=== PATIENT | male | born 1990 | race Caucasian/White ===

== ENCOUNTER 2017-09-15 16:57 | Emergency (ER) | payer OTHER ==
[~2017-09-15] VITALS: Ht 177.8 cm; Wt 86.2 kg
--- NOTE | 2017-09-15 17:13 | PHYS DOC ---
Adult General Chief Complaint Chief Complaint: LACERATION/AVULSION HPI HPI Patient is a 27-year-old male who presents with laceration of the distal thigh on the right side, tetanus up-to-date, patient denies any other injury. Injury occurred when patient hit his leg against a sheet metal former. Review of Systems Review of Systems Constitutional: Denies fever or chills [] Eyes: Denies injury HENT: Denies injury Cardiovascular: No chest injury GI: Denies abdominal pain, injury Musculoskeletal: Denies back pain or joint pain other than at the site of the laceration per history of present illness Integument: Denies rash or skin lesions. As per history of present illness Neurologic: Denies focal weakness or sensory changes [] All other systems were reviewed and found to be within normal limits, except as documented in this note. Physical Exam Physical Exam Constitutional: Well developed, well nourished, no acute distress, non-toxic appearance. [] HENT: Normocephalic, atraumatic, Eyes: EOMI, conjunctiva normal, no discharge. [] Neck: Normal range of motion, trachea midline no stridor. [] Cardiovascular: Normal perfusion] Lungs & Thorax: No tachypnea Abdomen: Nondistended[] Skin: Warm, dry, no erythema, no rash. Exception is laceration at distal thigh, linear, no contaminated, approximately 3.5 cm in length, no active bleeding, it does not go into the muscle Back: Normal range of motion Extremities: No tenderness, ROM intact, no edema. [] Neurologic: Alert and oriented X 3, normal motor function, no focal deficits noted. [] Psychologic: Affect normal, judgement normal, mood normal. [] EKG EKG [] Radiology/Procedures Radiology/Procedures [] Course & Med Decision Making Course & Med Decision Making Indication: Laceration distal right thigh Procedure: The patient was placed in the appropriate position and anesthesia around the 2% lidocaine, 4 mL injected into the subcutaneous tissue. The area was then cleaned with copious irrigation, no foreign bodies identified. The laceration was 3-0 nylon, 4 interrupted sutures The wound area was then dressed with gauze. Total repaired wound length: 3.5 cm. Other Items: No debridement. No tendon or muscle damage The patient tolerated the procedure well. Complications: None.Pertinent Labs and Imaging studies reviewed. (See chart for details) Total time: 10 minutes [] Dragon Disclaimer Dragon Disclaimer This electronic medical record was generated, in whole or in part, using a voice recognition dictation system. Departure Departure: Impression: Primary Impression: Laceration Disposition: 01 HOME, SELF-CARE Condition: IMPROVED Patient Instructions: Laceration Care, Adult, Sutured Wound Care Additional Instructions: Please follow your doctor for recheck and reevaluation in 3-5 days. Sutures should be removed in 10 days. Please be sure to look at the wound on a daily basis and if signs of infection develop please see your doctor immediately Anish ANNE MD Sep 15, 2017 17:13
[2017-09-15 17:28] VITALS: BP 135/66
== END 2017-09-15 17:42 | disposition home or self-care (01) ==
LOC: ER 16:57 → EEVIPCON 16:57 → ER 17:42
DX: S71.111A Laceration without foreign body, right thigh, initial encounter (principal); W26.8XXA Contact with other sharp object(s), not elsewhere classified, initial encounter; Y93.89 Activity, other specified; Y99.8 Other external cause status; Y92.89 Other specified places as the place of occurrence of the external cause
CPT/HCPCS: 12002; 99283-25